=== PATIENT | female | born 1975 | race Caucasian/White ===

== ENCOUNTER 2017-12-01 07:54 | Emergency (ER) | payer BC, OTHER ==
[2017-12-01] MEDS ORDERED: KETOROLAC TROMETHAMINE 60 MG/2 ML SDV IV ONE (08:53)
[2017-12-01] MEDS ORDERED: ONDANSETRON HCL INJ/PF 4 MG/2 ML SDV IV ONE (08:53)
[2017-12-01] MEDS ORDERED: RINGERS SOLUTION,LACTATED 1,000 ML IV ONE (08:54)
[2017-12-01] MEDS ORDERED: PHENAZOPYRIDINE HCL 200 MG TABLET PO ONE (08:54)
--- NOTE | 2017-12-01 09:07 | ER Document Report ---
ED Neck/Back Problem - General Mode of Arrival: Ambulatory Information source: Patient TRAVEL OUTSIDE OF THE [place] IN LAST 30 DAYS: No - HPI Patient complains to provider of: Pain, Lower back Onset: This morning - 0330 Associated symptoms: Other - see notes above <CORRIE RODRIGUEZ - Last Filed: 12/01/17 09:25> <EULA MIRAMONTES - Last Filed: 12/01/17 15:09> - General Chief Complaint: Back Pain Stated Complaint: FLANK PAIN Time Seen by Provider: 12/01/17 08:42 Notes: 42 year old female with history of kidney stones presents to the ED complaining of constant sharp left lower back pain that started at 0330 this morning. Patient reports that she has had what feels like a pulled muscle for the past few weeks, but the pain acutely worsened this morning. Patient reports nausea, but denies any fever, burning with urination, or hematuria. Patient reports this pain feels similarly to when she had an obstructed kidney stone. (CORRIE RODRIGUEZ) - Related Data Allergies/Adverse Reactions: Penicillins Allergy (Intermediate, Verified 12/01/17 07:57) rash Past Medical History - General Information source: Patient - Social History Smoking Status: Never Smoker Chew tobacco use (# tins/day): No Frequency of alcohol use: None Drug Abuse: None Family History: Reviewed & Not Pertinent - Past Medical History Cardiac Medical History: Reports: Hx Hypercholesterolemia Endocrine Medical History: Reports: Hx Diabetes Mellitus Type 2 - Pre-diabetic Renal/ Medical History: Reports: Hx Kidney Stones Psychiatric Medical History: Reports: Hx Depression Past Surgical History: Reports: Hx Gynecologic Surgery - D&C x 2, Hx Tonsillectomy - Immunizations Hx Diphtheria, Pertussis, Tetanus Vaccination: Yes <CORRIE RODRIGUEZ - Last Filed: 12/01/17 09:25> Review of Systems - Review of Systems Constitutional: No symptoms reported. denies: Fever EENT: No symptoms reported Cardiovascular: No symptoms reported Respiratory: No symptoms reported Gastrointestinal: See HPI, Nausea Genitourinary: No symptoms reported. denies: Burning, Hematuria Female Genitourinary: No symptoms reported Musculoskeletal: See HPI, Back pain - left lower Skin: No symptoms reported Hematologic/Lymphatic: No symptoms reported Neurological/Psychological: No symptoms reported -: Yes All other systems reviewed and negative <CORRIE RODRIGUEZ - Last Filed: 12/01/17 09:25> Physical Exam <MICHAELCORRIE - Last Filed: 12/01/17 09:25> <EULA MIRAMONTES - Last Filed: 12/01/17 15:09> - Vital signs Vitals: Temp Pulse Resp BP Pulse Ox 98.2 F 105 H 18 150/81 H 98 12/01/17 08:01 12/01/17 08:01 12/01/17 08:01 12/01/17 08:01 12/01/17 08:01 - Notes Notes: GENERAL: Alert, interacts well. Mildly uncomfortable. HEAD: Normocephalic, atraumatic. EYES: Pupils equal, round, and reactive to light. Extraocular movements intact. ENT: Oral mucosa moist, tongue midline. NECK: Full range of motion. Supple. Trachea midline. LUNGS: Clear to auscultation bilaterally, no wheezes, rales, or rhonchi. No respiratory distress. HEART: Regular rate and rhythm. No murmurs, gallops, or rubs. ABDOMEN: Soft, non-tender. Non-distended. Bowel sounds present in all 4 quadrants. BACK: Left paraspinal tenderness to palpation at the thoraco-lumbar junction. When palpating over the left mix axillary line pain shoots to the left lower quadrant. No midline bony tenderness. EXTREMITIES: Moves all 4 extremities spontaneously. No edema, radial pulses 2/4 bilaterally. No cyanosis. NEUROLOGICAL: Alert and oriented x3. Normal speech. PSYCH: Normal affect, normal mood. SKIN: Warm, diaphoretic, normal turgor. No rashes or lesions noted. No evidence of shingles. (MICHAELCORRIE) Course <MICHAELCORRIE - Last Filed: 12/01/17 09:25> - Laboratory Result Diagrams: 12/01/17 09:40 12/01/17 09:40 <EULA MIRAMONTES - Last Filed: 12/01/17 15:09> - Re-evaluation Re-evalutation: 12/01/17 12:11 CBC unremarkable, CMP unremarkable, test negative, urinalysis shows small blood, 1 RBC. Patient has a history of kidney stones and is having left- sided flank pain, CT renal protocol was performed and does not reveal any ureterolithiasis. Patient's pain was slightly decreased by Toradol and Robaxin. Patient has no red flag symptoms that would suggest cauda equina, no numbness or tingling, no incontinence, no weakness. Patient will be discharged home. She was warned of red flag symptoms to watch out for. (EULA MIRAMONTES) - Vital Signs Vital signs: Temp Pulse Resp BP Pulse Ox 98.1 F 81 18 140/88 H 99 12/01/17 12:22 12/01/17 12:22 12/01/17 12:22 12/01/17 12:22 12/01/17 12:22 - Laboratory Laboratory results interpreted by me: 12/01/17 12/01/17 09:40 09:40 MCH 26.6 L RDW 15.6 H Urine Blood SMALL H Discharge <CORRIE RODRIGUEZ - Last Filed: 12/01/17 09:25> <EULA MIRAMONTES - Last Filed: 12/01/17 15:09> - Discharge Clinical Impression: Left flank pain, Paraspinal muscle spasm Hypertension Qualifiers: Hypertension type: essential hypertension Qualified Code(s): I10 - Essential ( primary) hypertension Condition: Stable Disposition: HOME, SELF-CARE Instructions: Low Back Pain ([facility]) Prescriptions: Lidocaine [Lidoderm 5% (700 mg) Transdermal Patch] 1 patch TP DAILYP PRN #10 adh..patch PRN Reason: Methocarbamol [Robaxin 750 mg Tablet] 750 mg PO ASDIR PRN #40 tablet PRN Reason: Forms: Elevated Blood Pressure Referrals: PARTH PICKETT MD [Primary Care Provider] - Follow up in 1 week Scribe Attestation: 12/01/17 15:09 I personally performed the services described in the documentation, reviewed and edited the documentation which was dictated to the scribe in my presence, and it accurately records my words and actions. (EULA MIRAMONTES) Scribe Documentation - Scribe Written by Jazlyn:: Jazlyn Anthony, 12/01/2017 0927 acting as scribe for :: Akua <CORRIE RODRIGUEZ - Last Filed: 12/01/17 09:25>
[2017-12-01 09:57] LABS: ABSOLUTE BASOPHILS # (AUTO) 0.1 10^3/uL (0.0-0.2); ABSOLUTE EOSINOPHILS # (AUTO) 0.2 10^3/uL (0.0-0.6); ABSOLUTE MONOCYTES (AUTO) 0.9 10^3/uL (0.1-1.4); ABSOLUTE NEUT (AUTO) 6.6 10^3/uL (1.7-8.2); BASOPHILS % (AUTO) 0.6 % (0-2); EOSINOPHILS % (AUTO) 2.1 % (0-6); HEMATOCRIT 38.7 % (36.0-47.0); HEMOGLOBIN 12.9 g/dL (12.0-15.5); LYMPHOCYTES % (AUTO) 20.9 % (13-45); MEAN CORPUSCULAR HEMOGLOBIN 26.6 pg (27.0-33.4); MEAN CORPUSCULAR HGB CONC 33.3 g/dL (32.0-36.0); MEAN CORPUSCULAR VOLUME 80 fl (80-97); MONOCYTES % (AUTO) 9.1 % (3-13); PLATELET COUNT 314 10^3/uL (150-450); RED BLOOD COUNT 4.85 10^6/uL (3.72-5.28); RED CELL DISTRIBUTION WIDTH 15.6 % (11.5-14.0); SEGMENTED NEUTROPHILS % (AUTO) 67.3 % (42-78); TOTAL CELLS COUNTED % (AUTO) 100 %; WHITE BLOOD COUNT 9.8 10^3/uL (4.0-10.5)
[2017-12-01 10:11] LABS: APPEARANCE,URINE CLEAR; BILIRUBIN,URINE NEGATIVE (NEGATIVE); COLOR,URINE STRAW; GLUCOSE, URINE NEGATIVE (NEGATIVE); KETONES,URINE NEGATIVE (NEGATIVE); LEUKOCYTE ESTERASE,URINE NEGATIVE (NEGATIVE); NITRITE,URINE NEGATIVE (NEGATIVE); PROTEIN,URINE NEGATIVE (NEGATIVE); URINE SPECIFIC GRAVITY 1.006; UROBILINOGEN,URINE NEGATIVE mg/dL (<2.0)
[2017-12-01 10:21] LABS: ALANINE AMINOTRANSFERASE 25 U/L (9-52); ALBUMIN 4.1 g/dL (3.5-5.0); ALKALINE PHOSPHATASE 76 U/L (38-126); ANION GAP 11 (5-19); ASPARTATE AMINO TRANSFERASE 19 U/L (14-36); BILIRUBIN,DIRECT 0.4 mg/dL (0.0-0.4); BILIRUBIN,TOTAL 0.4 mg/dL (0.2-1.3); BLOOD UREA NITROGEN 16 mg/dL (7-20); CALCIUM 9.5 mg/dL (8.4-10.2); CARBON DIOXIDE 25 mmol/L (22-30); CHLORIDE 103 mmol/L (98-107); GLUCOSE 108 mg/dL (75-110); POTASSIUM 4.7 mmol/L (3.6-5.0); SODIUM 138.9 mmol/L (137-145); TOTAL PROTEIN 7.1 g/dL (6.3-8.2)
[2017-12-01] MEDS ORDERED: METHOCARBAMOL 750 MG TABLET PO ONE (10:51)
--- NOTE | 2017-12-01 11:30 | RADIOLOGY REPORT (SQ) ---
EXAM DESCRIPTION: CT LTD RENAL STONE PROTOCOL ON COMPLETED DATE/TIME: 12/01/2017 11:12 am REASON FOR STUDY: hematuria, left flank pain COMPARISON: 03/22/2012. TECHNIQUE: CT scan of the abdomen and pelvis performed without intravenous or oral contrast. Images reviewed with lung, soft tissue, and bone windows. Reconstructed coronal and sagittal MPR images revi ewed. All images stored on PACS. All CT scanners at this facility use dose modulation, iterative reconstruction, and/or weight based d osing when appropriate to reduce radiation dose to as low as reasonably achievable (ALARA). [facility]: Dose Right [facility]: CareDose [facility]: Dose Right [facility]: Teradose 4D [facility]: Smart Telnic RADIATION DOSE: CT Rad equipment meets quality standard of care and radiation dose reduction techniq ues were employed. CTDIvol: 19.2 mGy. DLP: 1058 mGy-cm.mGy. LIMITATIONS: None. FINDINGS: LOWER CHEST: No significant findings. No nodules or infiltrates. NON-CONTRASTED LIVER, SPLEEN, ADRENALS: Evaluation limited by lack of IV contrast. No identified sign ificant masses. PANCREAS: No masses. No peripancreatic inflammatory changes. GALLBLADDER: No identified stones by CT criteria. No inflammatory changes to suggest cholecystitis. RIGHT KIDNEY AND URETER: No suspicious masses. Assessment limited by lack of IV contrast. No signif icant calcifications. No hydronephrosis or hydroureter. LEFT KIDNEY AND URETER: No suspicious masses. Assessment limited by lack of IV contrast. 2 mm calcu hleadio in a lower pole calyx. No hydronephrosis or hydroureter. AORTA AND RETROPERITONEUM: No aneurysm. No retroperitoneal masses or adenopathy. BOWEL AND PERITONEAL CAVITY: No obvious masses or inflammatory changes. No free fluid. APPENDIX: Not visualized. PELVIS, BLADDER, AND ABDOMINAL WALL:No abnormal masses. No free fluid. Bladder normal. BONES: No significant findings. OTHER: No other significant finding. IMPRESSION: 2 MM NONOBSTRUCTING CALYCEAL CALCULUS IN THE LOWER POLE OF THE LEFT KIDNEY. NO URETERAL CALCULI OR OBSTRUCTIVE UROPATHY. NO OTHER SIGNIFICANT OR ACUTE PROCESS IN THE ABDOMEN OR PELVIS. COMMENT: Quality ID # [id number]: Final reports with documentation of one or more dose reduction techniques (e.g., Automated exposure control, adjustment of the mA and/or kV according to patient size, use of iterative reconstruction technique) TECHNICAL DOCUMENTATION: JOB ID: [id number] [employer]- All Rights Reserved
[2017-12-01] MEDS ORDERED: LIDOCAINE 5% (700 MG) TRANSDERMAL ADH..PATCH TP ONE (12:09)
[2017-12-01 12:47] VITALS: BP 140/88
== END 2017-12-01 12:25 | disposition home or self-care (01) ==
LOC: ER 07:54
DX: M62.830 Muscle spasm of back (principal); R11.0 Nausea; I10 Essential (primary) hypertension; E78.00 Pure hypercholesterolemia, unspecified; R73.03 Prediabetes; Z88.0 Allergy status to penicillin; Z87.442 Personal history of urinary calculi
CPT/HCPCS: 99284; 96375; 96365; 36415; 84703; 85025; 80053; 81001; 76380; J1885; J3490 ×2; J2405; J7120

== ENCOUNTER 2020-09-13 21:54 | Day surgery (SDC) | payer OTHER ==
--- NOTE | 2020-09-13 22:22 | ER Document Report ---
ED Medical Screen (RME) - General Chief Complaint: Upper Abdominal Pain Stated Complaint: CHILLS/ABDOMINAL PAIN Time Seen by Provider: 09/13/20 22:16 Primary Care Provider: PARTH PICKETT MD [Primary Care Provider] - Follow up as needed Mode of Arrival: Ambulatory Information source: Patient Notes: 45-year-old female presents to ED for right upper abdominal pain that started at 6 AM this morning. She states she has had some chills at that time as well as some diarrhea. She states she has not had any fevers. She states she has not had her gallbladder removed. She did have a gastric sleeve in 2019. She denies any Covid symptoms. No fever no nausea or vomiting no body aches. She states she is not been around anybody with Covid. She states she does smoke a pack a day does not drink or use any illicit drugs. I have updated her history medical and surgical. States her pain level is a 4/5. She states she is taking Pepcid Complete and Tums thinking it was reflux. She states she has not eaten today so she does not know if spicy or fatty foods would affect it. I have greeted and performed a rapid initial assessment of this patient. A comprehensive ED assessment and evaluation of the patient, analysis of test results and completion of medical decision making process will be conducted by an additional ED providers. TRAVEL OUTSIDE OF THE [place] IN LAST 30 DAYS: No - Related Data Allergies/Adverse Reactions: Penicillins Allergy (Intermediate, Verified 12/01/17 07:57) rash Past Medical History - General Last Menstrual Period: Menstrual period in 2 years - Social History Cigarette use (# per day): Yes - Pack per day Frequency of alcohol use: None Drug Abuse: None Lives with: Family Family history: Reviewed & Not Pertinent - Past Medical History Cardiac Medical History: Reports: Hx Hypercholesterolemia Pulmonary Medical History: Reports: None EENT Medical History: Reports: None Endocrine Medical History: Reports: Hx Diabetes Mellitus Type 2 - Pre-diabetic Renal/ Medical History: Reports: Hx Kidney Stones. Denies: Hx Peritoneal Dialysis Malignancy Medical History: Reports: None GI Medical History: Reports: None Musculoskeltal Medical History: Reports None Skin Medical History: Reports None Psychiatric Medical History: Reports: Hx Depression Traumatic Medical History: Reports: None Infectious Medical History: Reports: None Past Surgical History: Reports: Hx Gynecologic Surgery - D&C x 2, Hx Tonsillectomy, Other - Gastric sleeve 2019 - Immunizations Immunizations up to date: No Hx Diphtheria, Pertussis, Tetanus Vaccination: No History of Pneumococcal Vaccine: No History of Influenza Vaccine for 07/2019 - 12/2019 Season: No Physical Exam - Vital signs Vitals: Temp Pulse Resp BP Pulse Ox 98.1 F 99 16 133/82 H 98 09/13/20 22:03 09/13/20 22:03 09/13/20 22:03 09/13/20 22:03 09/13/20 22:03 Course - Vital Signs Vital signs: Temp Pulse Resp BP Pulse Ox 98.1 F 99 16 133/82 H 98 09/13/20 22:03 09/13/20 22:03 09/13/20 22:03 09/13/20 22:03 09/13/20 22:03 Doctor's Discharge - Discharge Referrals: PARTH PICKETT MD [Primary Care Provider] - Follow up as needed
[2020-09-13 23:01] LABS: ABSOLUTE BASOPHILS # (AUTO) 0.1 10^3/uL (0.0-0.2); ABSOLUTE LYMPHOCYTES (AUTO) 1.4 10^3/uL (0.5-4.7); ABSOLUTE MONOCYTES (AUTO) 1.5 10^3/uL (0.1-1.4); ABSOLUTE NEUT (AUTO) 12.6 10^3/uL (1.7-8.2); BASOPHILS % (AUTO) 0.4 % (0-2); EOSINOPHILS % (AUTO) 0.3 % (0-6); HEMATOCRIT 44.1 % (36.0-47.0); LYMPHOCYTES % (AUTO) 9.2 % (13-45); MEAN CORPUSCULAR VOLUME 85 fl (80-97); MONOCYTES % (AUTO) 9.4 % (3-13); PLATELET COUNT 278 10^3/uL (150-450); RED BLOOD COUNT 5.17 10^6/uL (3.72-5.28); RED CELL DISTRIBUTION WIDTH 13.7 % (11.5-14.0); SEGMENTED NEUTROPHILS % (AUTO) 80.7 % (42-78); TOTAL CELLS COUNTED % (AUTO) 100 %; WHITE BLOOD COUNT 15.7 10^3/uL (4.0-10.5)
[2020-09-13 23:29] LABS: ALBUMIN 4.3 g/dL (3.5-5.0); ALKALINE PHOSPHATASE 96 U/L (38-126); ANION GAP 7 (5-19); ASPARTATE AMINO TRANSFERASE 27 U/L (14-36); BILIRUBIN,DIRECT 0.1 mg/dL (0.0-0.4); BILIRUBIN,TOTAL 0.5 mg/dL (0.2-1.3); BLOOD UREA NITROGEN 13 mg/dL (7-20); CALCIUM 9.5 mg/dL (8.4-10.2); CARBON DIOXIDE 24 mmol/L (22-30); CHLORIDE 105 mmol/L (98-107); GLUCOSE 118 mg/dL (75-110); POTASSIUM 4.2 mmol/L (3.6-5.0); TOTAL PROTEIN 7.5 g/dL (6.3-8.2)
--- NOTE | 2020-09-13 23:55 | RADIOLOGY REPORT (SQ) ---
Ultrasound right upper quadrant on 09/13/2020 at 10:52 PM CLINICAL INDICATION: Right upper quadrant pain COMPARISON: CT from 12/01/2017 FINDINGS: Multiple sonographic images are obtained throughout the right upper quadrant, both transverse and sagittal images are obtained. The visualized aorta is unremarkable. Visualized pancreas is unremarkable. There is increased echogenicity in the liver consistent with fatty infiltration. Portal vein is patent and with a normal directional flow. The common duct measures 2 mm which is within normal limits mitigating against obstruction of the biliary tree. Right kidney shows no hydronephrosis. There are multiple echogenic foci with posterior shadowing nearly filling the gallbladder consistent with multiple gallstones. Borderline gallbladder wall thickening is noted. No pericholecystic fluid is noted. There is some focal fatty sparing in the liver adjacent to the gallbladder. No focal liver lesion is noted. Technologist noted a positive sonographic Mckoy's sign and please correlate with physical exam. IMPRESSION: 1. Cholelithiasis with borderline gallbladder wall thickening and technologist noting a positive sonographic Mckoy's sign. Findings could be related to changes of acute cholecystitis. If surgery is not initially considered, consider correlation with hepatobiliary scan. 2. Fatty infiltration of the liver.
[2020-09-14] MEDS ORDERED: CEFTRIAXONE INJ 1000 MG VIAL IV ONE (01:10)
[2020-09-14] MEDS ORDERED: HYDROMORPHONE HCL INJ/PF 2 MG/ML AMPULE IV ONE ×3 (01:10→06:23)
[2020-09-14] MEDS ORDERED: NORMAL SALINE 1000 ML 1,000 ML IV ONE (01:10)
[2020-09-14] MEDS ORDERED: ONDANSETRON HCL INJ/PF 4 MG/2 ML SDV IV ONE ×2 (01:11→06:23)
--- NOTE | 2020-09-14 01:31 | ER Document Report ---
ED General - General Chief Complaint: Abdominal Pain Stated Complaint: CHILLS/ABDOMINAL PAIN Time Seen by Provider: 09/13/20 22:16 Mode of Arrival: Ambulatory TRAVEL OUTSIDE OF THE [place] IN LAST 30 DAYS: No - HPI Context: Time: 0 115 Chief Complaint: [Epigastric pain] [This is a 45-year-old female presenting with a chief complaint of epigastric pain. Patient states she had an episode similar to this about 3 to 4 months ago that she thought was heartburn. Patient states she had onset of pain at 6 AM today and tried Tums and Pepcid without relief of symptoms. Patient states she had a gastric sleeve done at [facility] in 2019 which has resulted in her losing 110 pounds and being able to come off of her diabetes and hypertension medications. Patient also has a history of 3 miscarriages and 2 D&Cs. Patient also has a history of tonsillectomy. Patient states she has not been able to eat anything today because of the pain. Patient denies vomiting. Patient de nies history of COVID-19 infection, fever, cough, shortness of breath, known exposure to COVID-19 positive persons or persons under investigation for COVID- 19. ] History obtained from [patient] Symptoms began:[0600 hrs.] Onset: [Sudden] Timing: [Sudden] Quality: [Sharp] Intensity: [5 out of 5] Location: [Right upper quadrant and epigastrium] Radiation: [Patient denies] [The pain does not migrate to a new location.] Aggravating factors: [none] Relieving factors: [none] [Denies] SOB Positive nausea [Denies] vomiting [Denies] sweats [Denies] fever [Denies] cough [Denies] calf or leg swelling or pain - Related Data Allergies/Adverse Reactions: Penicillins Allergy (Intermediate, Verified 12/01/17 07:57) rash Past Medical History - General Information source: Patient Last Menstrual Period: Menstrual period in 2 years - Social History Smoking Status: Current Every Day Smoker Cigarette use (# per day): Yes - Pack per day Frequency of alcohol use: None Drug Abuse: None Lives with: Family Family History: Reviewed & Not Pertinent - Past Medical History Cardiac Medical History: Reports: Hx Hypercholesterolemia Pulmonary Medical History: Reports: None EENT Medical History: Reports: None Endocrine Medical History: Reports: Hx Diabetes Mellitus Type 2 - Pre-diabetic Renal/ Medical History: Reports: Hx Kidney Stones. Denies: Hx Peritoneal Dialysis Malignancy Medical History: Reports: None GI Medical History: Reports: None Musculoskeletal Medical History: Reports None Skin Medical History: Reports None Psychiatric Medical History: Reports: Hx Depression Traumatic Medical History: Reports: None Infectious Medical History: Reports: None Past Surgical History: Reports: Hx Gynecologic Surgery - D&C x 2, Hx Tonsillectomy, Other - Gastric sleeve 2019 - Immunizations Immunizations up to date: No Hx Diphtheria, Pertussis, Tetanus Vaccination: No History of Pneumococcal Vaccine: No Review of Systems - Review of Systems Notes: Review of systems as below unless otherwise stated in HPI. CONSTITUTIONAL [No] fever, [No] chills. EYES [No] eye pain. ENT [No] URI symptoms, [No] sore throat, [No] ear pain. CARDIOVASCULAR [No] chest pain, [No] palpitations, [No] edema. RESPIRATORY [No] Cough, [No] SOB, [No] wheezing. GASTROINTESTINAL Positive abdominal pain , positive nausea, [No] Diarrhea, [No] Vomiting, [No] constipation, [No] melena, [No] rectal bleeding. GENITOURINARY [No] dysuria, [No] urinary frequency, [No] hematuria, [No] urinary urgency, [No] vaginal discharge, [No] vaginal bleeding. MUSCULOSKELETAL [No] Back pain. SKIN [No] Rash. NEUROLOGIC [No] Headache, [No] recent seizures, [No] paralysis,[No] parathesias. ENDOCRINE [No] polyuria. HEMO/LYMPATIC [No] easy brusing PSYCHIATRIC [No] depression. Physical Exam - Vital signs Vitals: Temp Pulse Resp BP Pulse Ox 98.1 F 99 16 133/82 H 98 09/13/20 22:03 09/13/20 22:03 09/13/20 22:03 09/13/20 22:03 09/13/20 22:03 - Notes Notes: CONSTITUTIONAL [Vital signs reviewed, Patient appears uncomfortable, Alert and oriented X 3, Normal stature.] HEAD [Atraumatic, Normocephalic.] EYES [Eyes are normal to inspection, No discharge from eyes, Extraocular muscles intact, Sclera are normal, Conjunctiva are normal.] ENT [External ears normal to inspection, Nose examination normal, Mouth normal to inspection.] NECK [Normal ROM, No jugular venous distention, No meningeal signs, ] RESPIRATORY CHEST [Chest is nontender, Breath sounds normal, No respiratory distress.] CARDIOVASCULAR [RRR, No murmurs, Normal S1 S2, No rub, No gallop.] ABDOMEN [Abdomen is tender to palpation in the right upper quadrant, positive Mckoy's sign, no pulsatile masses, No other masses, Bowel sounds normal, No distension, No peritoneal signs, No hernias.] BACK [There is no CVA Tenderness, There is no tenderness to palpation, Normal inspection.] UPPER EXTREMITY [Inspection normal, No cyanosis, No clubbing, No edema, LOWER EXTREMITY [Inspection normal, No cyanosis, No clubbing, No edema, No calf tenderness, NEURO [No focal motor deficits, No focal sensory deficits, Speech normal.] SKIN [Skin is warm, Skin is dry, Skin is normal color.] PSYCHIATRIC [Normal affect. ] Course - Re-evaluation Re-evalutation: 09/14/20 06:49 Charge nurse informed this MD that Dr. Henley's plan is to take the patient from the ED to the OR when he has a slot open later this morning. - Vital Signs Vital signs: Temp Pulse Resp BP Pulse Ox 98.7 F 79 14 150/79 H 100 09/14/20 03:12 09/14/20 03:12 09/14/20 03:12 09/14/20 03:12 09/14/20 03:12 - Laboratory Result Diagrams: 09/13/20 22:45 09/13/20 22:45 Laboratory results interpreted by me: 09/13/20 09/13/20 09/14/20 22:45 22:45 01:50 WBC 15.7 H Lymph % (Auto) 9.2 L Absolute Neuts (auto) 12.6 H Absolute Monos (auto) 1.5 H Seg Neutrophils % 80.7 H Sodium 136.2 L Glucose 118 H Urine Protein 30 H Urine Blood SMALL H - Diagnostic Test Radiology reviewed: Reports reviewed - EKG Interpretation by Me Additional EKG results interpreted by me: 09/14/20 02:06 EKG obtained on 09/14/2020 at 0202 hrs. was interpreted by this MD. Findings: Normal sinus rhythm, rate 78, normal axis, NV intervals appears to be within normal limits, P waves proceed QRS complexes, QRS complexes appear narrow, QTC is 429, there are no obvious patterns of ST segment elevation, depression or reciprocal changes seen to suggest acute myocardial ischemia or infarction. When compared to prior EKG from 12/20/2015 the morphology of the 2 EKGs appears grossly the same. Impression: Normal sinus rhythm with nonspecific ST segments. - Consults Dr. Henley, surgicalist cotton cleaner Time consulted: 03:26 Reason for consultation: 09/14/20 03:26 symptomatic cholelithiasis Consulted provider: will come to ER - Transfer of Care Care transferred to following provider: Dr. Bray @ [id number] Discharge - Discharge Clinical Impression: Symptomatic cholelithiasis Condition: Stable Disposition: OTHER Admitting Provider: Surgicalist - [facility] Admitted: OR
[2020-09-14 02:35] LABS: APPEARANCE,URINE SLIGHTLY-CLOUDY; BILIRUBIN,URINE NEGATIVE (NEGATIVE); COLOR,URINE AMBER; GLUCOSE, URINE NEGATIVE (NEGATIVE); KETONES,URINE NEGATIVE (NEGATIVE); LEUKOCYTE ESTERASE,URINE NEGATIVE (NEGATIVE); NITRITE,URINE NEGATIVE (NEGATIVE); PROTEIN,URINE 30 mg/dL (NEGATIVE); URINE SPECIFIC GRAVITY 1.027; UROBILINOGEN,URINE NEGATIVE mg/dL (<2.0)
--- NOTE | 2020-09-14 03:31 | RADIOLOGY REPORT (SQ) ---
AP Portable chest: 09/14/2020 2:29 AM RENTAL COORDINATOR History: 45-year old patient with preoperative respiratory evaluation. Comparison: None available Findings: The cardiomediastinal silhouette is normal in size. No pneumothorax is seen. No acute airspace opacities are seen. No discrete pleural effusion is apparent. Impression: No acute airspace opacities are seen.
--- NOTE | 2020-09-14 04:36 | PDOC H&P ---
History of Present Illness Admission Date/PCP: PARTH PICKETT MD History of Present Illness: URIAH RODRIGUEZ is a 45 year old female[ presenting with a chief complaint of epigastric pain. Patient states she had an episode similar to this about 3 to 4 months ago that she thought was heartburn. Patient states she had onset of pain at 6 AM today and tried Tums and Pepcid without relief of symptoms. Patient states she had a gastric sleeve done at [facility] in 2019 which has resulted in her losing 110 pounds and being able to come off of her diabetes and hypertension medications. Patient also has a history of 3 miscarriages and 2 D&Cs. Patient also has a history of tonsillectomy. Patient states she has not been able to eat anything today because of the pain. Patient denies vomiting. Patient denies history of COVID-19 infection, fever, cough, shortness of breath, known exposure to COVID-19 positive persons or persons under Past Medical History Cardiac Medical History: Reports: Hyperlipidema Pulmonary Medical History: Reports: None EENT Medical History: Reports: None Endocrine Medical History: Reports: Diabetes Mellitus Type 2 - Pre-diabetic Malignancy Medical History: Reports: None GI Medical History: Reports: None Musculoskeltal Medical History: Reports: None Skin Medical History: Reports: None Psychiatric Medical History: Reports: Depression Traumatic Medical History: Reports: None Infectious Medical History: Reports: None Past Surgical History Past Surgical History: Reports: Tonsillectomy, Other - Gastric sleeve 2019 Social History Lives with: Family Smoking Status: Current Every Day Smoker Family History Family History: Reviewed & Not Pertinent Parental Family History Reviewed: No Children Family History Reviewed: NA Sibling(s) Family History Reviewed.: NA Medication/Allergy Home Medications: Fluoxetine HCl [Prozac 20 Mg Capsule] 20 mg PO DAILY 04/13/13 Hydrocodone Bit/Acetaminophen [Lortab 5-500 Tablet] 1 tab PO Q6 PRN #10 tablet 04/13/13 Metformin HCl [Glucophage 500 Mg Tablet] 500 mg PO BID 04/13/13 Furosemide [Lasix 20 mg Tablet] 20 mg PO QAM #30 tablet 12/20/15 Lisinopril [Prinivil 2.5 mg Tablet] 2.5 mg PO DAILY #30 tablet 12/20/15 Lidocaine [Lidoderm 5% (700 mg) Transdermal Patch] 1 patch TP DAILYP PRN #10 adh..patch 12/01/17 Methocarbamol [Robaxin 750 mg Tablet] 750 mg PO ASDIR PRN #40 tablet 12/01/17 Allergies/Adverse Reactions: Penicillins Allergy (Intermediate, Verified 12/01/17 07:57) rash Review of Systems Constitutional: PRESENT: fatigue, weight loss Eyes: ABSENT: as per HPI, visual disturbances, other Ears: ABSENT: as per HPI, hearing changes, other Nose, Mouth, and Throat: ABSENT: as per HPI, headache(s), mouth pain, sore throat, vertigo, other Breasts: ABSENT: as per HPI, other Cardiovascular: ABSENT: as per HPI, chest pain, dyspnea on exertion, edema, orthropnea, palpitations, other Respiratory: ABSENT: as per HPI, cough, dyspnea, hemoptysis, sputum, other Genitourinary: PRESENT: as per HPI Musculoskeletal: ABSENT: as per HPI, back pain, deformity, joint swelling, muscle weakness, other Integumentary: ABSENT: as per HPI, diaphoresis, erythema, lesions, pruritus, rash, wounds, other Neurological: ABSENT: as per HPI, abnormal gait, abnormal movements, abnormal speech, confusion, convulsions, dizziness, focal weakness, frequent falls, lack of coordination, memory loss, numbness, paresthesias, restless legs, syncope, tingling, tremor(s), vertigo, weakness, other Psychiatric: ABSENT: as per HPI, anxiety, depression, hallucinations, homidical ideation, suicidal ideation, other Endocrine: ABSENT: as per HPI, cold intolerance, flushing, heat intolerance, menstrual abnormalities, polydipsia, polyphagia, polyuria, other Hematologic/Lymphatic: ABSENT: as per HPI, easy bleeding, easy bruising, lymphadenopathy, other Allergic/Immunologic: ABSENT: as per HPI, seasonal rhinorrhea, other Physical Exam Vital Signs: Temp Pulse Resp BP Pulse Ox 98.7 F 79 14 150/79 H 100 09/14/20 03:12 09/14/20 03:12 09/14/20 03:12 09/14/20 03:12 09/14/20 03:12 Intake & Output 09/12/20 09/13/20 09/14/20 06:59 06:59 06:59 Intake Total 1100 Balance 1100 Weight 97.069 kg General appearance: PRESENT: mild distress, obese Eye exam: PRESENT: EOMI Ear exam: PRESENT: normal external ear exam Mouth exam: PRESENT: moist Teeth exam: PRESENT: poor dentation Neck exam: PRESENT: full ROM Respiratory exam: PRESENT: clear to auscultation serge Cardiovascular exam: PRESENT: RRR Pulses: PRESENT: normal radial pulses, normal femoral pulses Vascular exam: PRESENT: normal capillary refill Breast: PRESENT: Normal GI/Abdominal exam: PRESENT: Mckoy's sign, tenderness Rectal exam: PRESENT: deferred Extremities exam: PRESENT: full ROM Musculoskeletal exam: PRESENT: full ROM Neurological exam: PRESENT: alert, awake, oriented to person, oriented to place Psychiatric exam: PRESENT: appropriate affect Skin exam: PRESENT: dry Results Laboratory Results: 09/13/20 22:45 09/13/20 22:45 09/13/20 09/13/20 09/14/20 22:45 22:45 01:50 WBC 15.7 H RBC 5.17 Hgb 15.0 Hct 44.1 MCV 85 MCH 29.0 MCHC 34.0 RDW 13.7 Plt Count 278 Seg Neutrophils % 80.7 H Sodium 136.2 L Potassium 4.2 Chloride 105 Carbon Dioxide 24 Anion Gap 7 BUN 13 Creatinine 0.59 Est GFR ( Amer) > 60 Glucose 118 H Calcium 9.5 Total Bilirubin 0.5 AST 27 Alkaline Phosphatase 96 Total Protein 7.5 Albumin 4.3 Lipase 48.3 Urine Color JACKY Urine Appearance SLIGHTLY-CLOUDY Urine pH 5.0 Ur Specific Myton 1.027 Urine Protein 30 H Urine Glucose (UA) NEGATIVE Urine Ketones NEGATIVE Urine Blood SMALL H Urine Nitrite NEGATIVE Ur Leukocyte Esterase NEGATIVE Urine WBC (Auto) 1 Urine RBC (Auto) 4 Impressions: Abdomen Ultrasound 09/13/20 22:22 IMPRESSION: 1. Cholelithiasis with borderline gallbladder wall thickening and technologist noting a positive sonographic Mckoy's sign. Findings could be related to changes of acute cholecystitis. If surgery is not initially considered, consider correlation with hepatobiliary scan. 2. Fatty infiltration of the liver. Assessment & Plan - Time Anticipated Discharge Disposition: Home, Self Care Anticipated Discharge Timeframe: within 24 hours - Plan Summary Plan Summary: impression acute cholecystitis to or for lap phong.
[2020-09-14] MEDS ORDERED: FENTANYL CITRATE INJ/PF 100 MCG/2 ML AMPUL ONE ×2 (07:43→10:37)
[2020-09-14] MEDS ORDERED: KETOROLAC TROMETHAMINE 60 MG/2 ML SDV ONE (07:43)
[2020-09-14] MEDS ORDERED: MIDAZOLAM 2 MG/2 ML INJ ONE (07:43)
[2020-09-14] MEDS ORDERED: ONDANSETRON HCL INJ/PF 4 MG/2 ML SDV ONE (07:43)
[2020-09-14] MEDS ORDERED: DEXAMETHASONE SOD PHOSPHATE INJ 4 MG/1 ML VIAL ONE (07:43)
[2020-09-14] MEDS ORDERED: PROPOFOL INJ 200 MG/20 ML VIAL IV ONE (07:44)
--- NOTE | 2020-09-14 08:31 | EKG REPORT ---
SEVERITY:- ABNORMAL ECG - SINUS RHYTHM : Confirmed by: Temo Bowling MD 14-Sep-2020 08:30:30
[2020-09-14] MEDS ORDERED: RINGERS SOLUTION,LACTATED 1,000 ML IV PRN (08:45)
[2020-09-14] MEDS ORDERED: SCOPOLAMINE HYDROBROMIDE 1.5 MG PATCH.TD72 ONE (09:09)
[2020-09-14] MEDS ORDERED: VECURONIUM BROMIDE INJ 10 MG VIAL IV ONE (09:29)
[2020-09-14] MEDS ORDERED: SUCCINYLCHOLINE CHLORIDE INJ 200 MG/10 ML VIAL ONE (09:29)
[2020-09-14] MEDS ORDERED: GLYCOPYRROLATE 1 MG/5 ML VIAL ONE (09:29)
[2020-09-14] MEDS ORDERED: PHENYLEPHRINE HCL INJ/PF 10 MG/1 ML SDV ONE (09:29)
[2020-09-14] MEDS ORDERED: NEOSTIGMINE METHYLSULFATE 10 MG/10 ML VIAL ONE (09:29)
[2020-09-14] MEDS ORDERED: OXYCODONE-ACETAMINOPHEN 5-325 MG TABLET PO PRN ×2 (09:38)
[2020-09-14] MEDS ORDERED: FENTANYL CITRATE INJ/PF 100 MCG/2 ML AMPUL IV PRN ×3 (09:38)
[2020-09-14] MEDS ORDERED: ONDANSETRON HCL INJ/PF 4 MG/2 ML SDV IV PRN (09:38)
[2020-09-14] MEDS ORDERED: MORPHINE SULFATE 10 MG/ML INJ IV PRN (09:38)
[2020-09-14] MEDS ORDERED: DIPHENHYDRAMINE HCL 50 MG/ML VIAL IV PRN (09:38)
[2020-09-14] MEDS ORDERED: MEPERIDINE HCL/PF INJ 25 MG/1 ML DISP.SYRIN IV PRN (09:38)
[2020-09-14] MEDS ORDERED: PROMETHAZINE HCL INJ 25 MG/1 ML VIAL IV PRN ×2 (09:38)
[2020-09-14] MEDS: BUPIVACAINE INJ/PF LIPOSOME/PF 266 MG/20 ML SDV ONE ×2 (09:47→10:07)
--- NOTE | 2020-09-14 10:32 | Operative Report ---
Nonrecallable Operative Report DATE OF SURGERY: 09/14/20 PREOPERATIVE DIAGNOSIS: cholecystitis POSTOPERATIVE DIAGNOSIS: same OPERATION: Laparoscopic cholecystectomy SURGEON: REID BENDER ANESTHESIA: GA TISSUE REMOVED OR ALTERED: Gallbladder COMPLICATIONS: None ESTIMATED BLOOD LOSS: 50 cc INTRAOPERATIVE FINDINGS: Cholecystitis PROCEDURE: After obtaining informed consent, the patient was taken to the operating room. General Anesthesia was induced; the arms were extended, and the abdomen was exposed, and prepped and draped in a sterile fashion. Instrumentation was set up for laparoscopic cholecystectomy. Surgical plan and surgical timeout were conducted. A vertical incision was made above the umbilicus, and a verres needle was inserted uneventfully into the peritoneal cavity. Pneumoperitoneum was established. The verres needle was removed and a 10 mm trocar was inserted and a 10 mm laparoscope was inserted. Visualization of the peritoneal cavity confirmed safe uneventful entry. Under direct visualization 3 additional 5 mm ports were established, one in the subxiphoid position and second in the subcostal position. Visualization of the hepatobiliary anatomy revealed no anatomic variations. A grasper was placed on the fundus of the gallbladder and the gallbladder is elevated over the right surface of the liver; a second grasper was used to grasp the infundibulum of the gallbladder. The neck of the gallbladder and junction with the cystic duct was dissected out. The Cystic artery was in its usual location medial and cephalad to the cystic duct. The cystic artery was surrounded with a right angle clamp, clipped twice proximally and divided with laparoscopic scissors. We now opened the triangle of Calot by dividing the peritoneal reflection on both the medial and lateral sides of the cystic duct infundibular junction. The critical view was obtained. We now milked the cystic duct of any possible stones, clipped the cystic duct approximately 2 times once distally and divided with scissors. The gallbladder was now removed from the undersurface of the liver using hook cautery dissection. Graspers were repositioned and the gallbladder was removed uneventfully from the abdominal cavity through the super umbilical port site incision. The specimen was examined, then passed off to pathology for permanent analysis. We returned to the peritoneal cavity check for bleeding, and evidence of bile leak, and there was none. We Confirmed satisfactory placement of clips on cystic duct and cystic artery were secured . At this point we felt the operation was complete. The subcutaneous tissue was then anesthetized with quarter percent Marcaine Sponge and needle counts are correct. All ports removed under direct visualization pneumoperitoneum evacuated, and 5 mm port wounds closed with 3-0 Vicryl suture, benzoin and Steri-Strips. The patient was extubated, and taken to the recovery room in stable condition.
--- NOTE | 2020-09-14 10:37 | Discharge Summary ---
Discharge Summary (SDC) - Discharge Final Diagnosis: Cholecystitis Date of Surgery: 09/14/20 Discharge Date: 09/14/20 Condition: Good Prescriptions: Hydrocodone/Acetaminophen [[place] 10-325 mg Tablet] 1 tab PO Q6HP PRN #15 tablet PRN Reason: Referrals: PARTH PICKETT MD [Primary Care Provider] - Follow up as needed Discharge Diet: As Tolerated
[2020-09-14 11:16] VITALS: BP 101/46
[2020-09-14] MEDS ORDERED: OXYCODONE-ACETAMINOPHEN 5-325 MG TABLET ONE (11:22)
== END 2020-09-14 ==
LOC: ER 21:54 → OROUT 09-14 04:29 → ASU 09-14 04:30
PROVIDERS: ATTEND Surgery
DX: K81.0 Acute cholecystitis (principal); Z20.828 Contact with and (suspected) exposure to other viral communicable diseases; K76.0 Fatty (change of) liver, not elsewhere classified; E66.9 Obesity, unspecified; Z98.84 Bariatric surgery status; Z86.79 Personal history of other diseases of the circulatory system; F17.210 Nicotine dependence, cigarettes, uncomplicated; Z86.39 Personal history of other endocrine, nutritional and metabolic disease; Z87.442 Personal history of urinary calculi
CPT/HCPCS: 93005; 36415; 83690; 85025; 0241U ×4; 81025; 80053; 81001; 88304 ×2; 71045; 76705; 93010; 99140; 00790; 47562; J2250; J1100; J1885; J3010; J3490 ×2; J2710; J1170; J2370; J0330; J0696; J2405; J7030; J2704; C9290; C9803; 790